=== PATIENT | male | born 1965 | race Caucasian/White ===

== ENCOUNTER 2017-08-30 19:51 | Emergency (ER) | payer OTHER ==
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
== END 2017-08-30 20:15 | disposition home or self-care (01) ==
LOC: MW.ED 19:51
DX: S06.0X1A Concussion with loss of consciousness of 30 minutes or less, initial encounter (principal); S00.01XA Abrasion of scalp, initial encounter; S30.810A Abrasion of lower back and pelvis, initial encounter; F17.200 Nicotine dependence, unspecified, uncomplicated; V29.9XXA Motorcycle rider (driver) (passenger) injured in unspecified traffic accident, initial encounter
CPT/HCPCS: 99284

== ENCOUNTER 2021-04-15 07:35 | Day surgery (SDC) | payer MEDICAID ==
[~2021-04-15 07:35] MED LIST: Acetaminophen 1,000 MG in Premix Bag 1 BAG IV SCH; Lactated Ringers 1,000 ML IV SCH; Pregabalin 75 MG Cap PO SCH; Propofol 200 MG/20 ML SDV ONE; ceFAZolin 2 GM in Premix Bag 1 BAG IV SCH
[2021-04-15] MEDS ORDERED: fentaNYL 250 MCG/5 ML SDV ONE (07:37)
[2021-04-15] MEDS ORDERED: Albuterol 0.083% 2.5 MG/3 ML Neb Soln NEB PRN (08:23)
[2021-04-15] MEDS ORDERED: HYDROmorphone 1 MG/ML Syringe IVPUSH PRN (08:23)
[2021-04-15] MEDS ORDERED: Naloxone 0.4 MG/ML SDV IVPUSH PRN (08:23)
[2021-04-15] MEDS ORDERED: fentaNYL 100 MCG/2 ML SDV IVPUSH PRN (08:23)
[2021-04-15] MEDS ORDERED: Ondansetron 4 MG/2 ML SDV IVPUSH PRN (08:23)
[2021-04-15] MEDS ORDERED: Metoclopramide 10 MG/2 ML SDV IVPUSH PRN (08:23)
[2021-04-15] MEDS ORDERED: Ropivacaine 0.5% 5 MG/ML 30 ML SDV ONE (08:47)
[2021-04-15] MEDS ORDERED: Octyl 2-Cyanoacrylate 1 Tube ONE (09:05)
[2021-04-15] MEDS ORDERED: Bupivacaine 0.5% 30 ML SDV ONE (09:05)
[2021-04-15] MEDS ORDERED: Ketamine HCL/NACL, ISO-OSM 50 MG/5 ML Syringe ONE (09:53)
[2021-04-15] MEDS ORDERED: fentaNYL 100 MCG/2 ML SDV ONE ×2 (10:21→10:27)
[2021-04-15] MEDS ORDERED: Rocuronium Bromide 50 MG/5 ML Syringe ONE ×2 (10:47→12:50)
[2021-04-15] MEDS ORDERED: Glycopyrrolate 0.2 MG/ML SDV ONE (10:47)
[2021-04-15] MEDS ORDERED: Dexamethasone 4 MG/ML 5 ML MDV ONE (10:47)
[2021-04-15] MEDS ORDERED: Ondansetron 4 MG/2 ML SDV ONE (10:47)
[2021-04-15] MEDS ORDERED: Sugammadex Sodium 200 MG/2 ML VIAL ONE (12:50)
== END 2021-04-15 13:57 | disposition home or self-care (01) ==
LOC: MW.SDS 07:35
PROVIDERS: ATTEND Surgery
DX: K40.90 Unilateral inguinal hernia, without obstruction or gangrene, not specified as recurrent (principal); Z87.891 Personal history of nicotine dependence
CPT/HCPCS: 49650; A9270; J0131; J0690; J1100; J2405; J2704; J2795; J3010; J3490; J7120; 00840; C1781

== ENCOUNTER 2021-08-22 20:23 | Emergency (ER) | payer MEDICAID | END 2021-08-22 20:40 | disposition left against medical advice (07) | LOC: MW.ED 20:23 | DX: Z53.21 Procedure and treatment not carried out due to patient leaving prior to being seen by health care provider (principal) ==

== ENCOUNTER 2022-02-12 06:06 | Day surgery (SDC) | payer MEDICAID ==
[~2022-02-12 06:06] MED LIST changes: -Propofol 200 MG/20 ML SDV ONE
[2022-02-12] MEDS ORDERED: HYDROmorphone 1 MG/ML Syringe IVPUSH PRN (07:01)
[2022-02-12] MEDS ORDERED: Metoclopramide 10 MG/2 ML SDV IVPUSH PRN (07:01)
[2022-02-12] MEDS ORDERED: Naloxone 0.4 MG/ML SDV IVPUSH PRN (07:01)
[2022-02-12] MEDS ORDERED: Albuterol 0.083% 2.5 MG/3 ML Neb Soln NEB PRN (07:01)
[2022-02-12] MEDS ORDERED: Ondansetron 4 MG/2 ML SDV IVPUSH PRN (07:01)
[2022-02-12] MEDS ORDERED: Morphine 2 MG/ML SYRINGE IVPUSH PRN (07:01)
[2022-02-12] MEDS ORDERED: fentaNYL 50 MCG/ML SDV IVPUSH PRN (07:01)
[2022-02-12] MEDS ORDERED: Ropivacaine 0.5% 5 MG/ML 30 ML SDV ONE ×2 (07:18→07:55)
[2022-02-12] MEDS ORDERED: Dexmedetomidine 200 MCG/2 ML SDV ONE (07:23)
[2022-02-12] MEDS ORDERED: Propofol 200 MG/20 ML SDV ONE (07:23)
[2022-02-12] MEDS ORDERED: Rocuronium Bromide 50 MG/5 ML Syringe ONE (07:23)
[2022-02-12] MEDS ORDERED: Dexamethasone 4 MG/ML 5 ML MDV ONE (07:23)
[2022-02-12] MEDS ORDERED: Sugammadex Sodium 200 MG/2 ML VIAL ONE (07:23)
[2022-02-12] MEDS ORDERED: Lidocaine 2% 5 ML SDV ONE (07:23)
[2022-02-12] MEDS ORDERED: fentaNYL 100 MCG/2 ML SDV ONE (07:23)
[2022-02-12] MEDS ORDERED: Ondansetron 4 MG/2 ML SDV ONE (07:23)
[2022-02-12] MEDS ORDERED: ceFAZolin 2 GM Vial ONE (07:23)
[2022-02-12] MEDS ORDERED: Ketorolac 30 MG/ML SDV ONE (07:23)
[2022-02-12] MEDS ORDERED: Midazolam 1 MG/ML 2 ML SDV ONE (07:23)
[2022-02-12] MEDS ORDERED: Water For Injection, Sterile 20 ML ONE (07:26)
[2022-02-12] MEDS ORDERED: Bupivacaine 0.5% 30 ML SDV ONE (08:39)
[2022-02-12] MEDS ORDERED: Glycopyrrolate 0.2 MG/ML SDV ONE ×2 (08:52)
== END 2022-02-12 12:15 | disposition home or self-care (01) ==
LOC: MW.SDS 06:06
PROVIDERS: ATTEND Surgery
DX: K40.90 Unilateral inguinal hernia, without obstruction or gangrene, not specified as recurrent (principal); M19.90 Unspecified osteoarthritis, unspecified site; F17.210 Nicotine dependence, cigarettes, uncomplicated; Z79.899 Other long term (current) drug therapy
CPT/HCPCS: 49650; A9270; J0131; J0690; J1100; J1885; J2250; J2405; J2704; J2795; J3010; J3490; J7120

== ENCOUNTER 2022-08-30 22:15 | Emergency (ER) | payer OTHER, MEDICAID ==
[2022-08-30] MEDS ORDERED: ceFAZolin 2 GM in Sodium Chloride 0.9% 50 ML IV ONE (22:21)
[2022-08-30] MEDS ORDERED: Lidocaine 1% with EPINEPHrine 1:100,000 10 ML MDV INJECT ONE (22:21)
[2022-08-30] MEDS ORDERED: Diphtheria,Pertussis(Acell),Tetanus Vaccine 0.5 ML Syringe IM ONE (22:21)
[2022-08-30 22:36] LABS: BASOPHILS PERCENT AUTO 0.6 % (0.0-1.5); EOSINOPHILS ABSOLUTE AUTO 0.1 K/uL (0.0-0.7); EOSINOPHILS PERCENT AUTO 1.9 % (0.0-7.0); HEMATOCRIT 44.4 % (38.0-50.0); HEMOGLOBIN 14.6 g/dL (13.0-17.0); LYMPHOCYTES ABSOLUTE AUTO 2.9 K/uL (0.6-2.4); LYMPHOCYTES PERCENT AUTO 40.6 % (16.0-40.0); MEAN CORPUSCULAR HEMOGLOBIN 29.6 pg (27.0-32.0); MEAN CORPUSCULAR HGB CONC 32.9 g/dL (31.0-37.0); MEAN CORPUSCULAR VOLUME 89.9 fL (80.0-98.0); MONOCYTES ABSOLUTE AUTO 0.6 K/uL (0.0-0.8); NEUTROPHILS ABSOLUTE AUTO 3.6 K/uL (1.4-5.7); NEUTROPHILS PERCENT AUTO 48.9 % (48.0-80.0); NRBC ABSOLUTE 0 K/uL; PLATELET COUNT,PLT 266 K/uL (150-400); RED BLOOD CELL COUNT 4.94 M/uL (4.50-5.90); WHITE BLOOD CELL COUNT,WBC 7.25 K/uL (4.0-11.0)
[2022-08-30] MEDS ORDERED: HYDROmorphone 1 MG/ML Syringe IVPUSH ONE (22:44)
[2022-08-30 22:46] LABS: PTT,PARTIAL THROMBOPLSTIN TIME 23.6 SEC (23.9-30.7)
[2022-08-30 22:50] LABS: A/G RATIO 1.1 (0.9-1.6); ALANINE AMINOTRANSFERASE,ALT 21 IU/L (14-63); ALBUMIN 3.5 g/dL (3.4-5.0); ALKALINE PHOSPHATASE 82 U/L (46-116); ASPARTATE AMNIOTRANSFERASE,AST 22 IU/L (15-37); BILIRUBIN TOTAL 0.7 mg/dL (0.2-1.0); BLOOD UREA NITROGEN,BUN 19 mg/dL (7.0-18.0); CALCIUM 8.2 mg/dL (8.5-10.1); CARBON DIOXIDE,CO2 26.8 mmol/L (21.0-32.0); CHLORIDE,CL 104 mmol/L (98-107); CREATININE 0.9 mg/dL (0.8-1.3); EST CRCL DRUG DOSING (CG) 85.05 mL/min; ESTIMATED GFR 98 mL/min (>60); ETHANOL BLOOD MEDICAL < 3.0 mg/dL; GLUCOSE RANDOM 106 mg/dL (74-106); LIPASE 181 U/L (73-393); POTASSIUM,K 3.7 mmol/L (3.5-5.1); PROTEIN TOTAL,TP 6.8 g/dL (6.4-8.2); SODIUM,NA 141 mmol/L (136-148)
[2022-08-30] MEDS ORDERED: Iopamidol 755 MG/ML 500 ML Multipack Bottle IVPUSH ONE (22:59)
[2022-08-31] MEDS ORDERED: Lidocaine/Epineph/Tetracaine 3 ML Syringe TOP ONE (00:21)
[2022-08-31] MEDS ORDERED: Ibuprofen 400 MG Tab PO ONE (00:21)
[2022-08-31] MEDS ORDERED: Acetaminophen 325 MG Tab PO ONE (00:21)
[2022-08-31] MEDS ORDERED: HYDROmorphone 1 MG/ML Syringe IVPUSH ONE (03:15)
== END 2022-08-31 05:49 ==
LOC: MW.ED 22:15
DX: S51.811A Laceration without foreign body of right forearm, initial encounter (principal); Z23 Encounter for immunization; V89.2XXA Person injured in unspecified motor-vehicle accident, traffic, initial encounter; Y92.410 Unspecified street and highway as the place of occurrence of the external cause
CPT/HCPCS: 36415; 70450; 71045; 71260; 72125; 73090; 74177; 80053; 80307; 83690; 85025; 85610; 85730; 86850; 86900; 86901; 90471; 90715; 96365; 96375; 96376; 99285; A9270; J0690; J1170; J3490; Q9967